=== PATIENT | female | born 1960 | race Caucasian/White ===

== ENCOUNTER 2016-09-04 18:55 | Observation (INO) | payer BC ==
--- NOTE | 2016-09-04 19:07 | PDOC ---
History of Present Illness - General History Source: Patient Exam Limitations: No Limitations - History of Present Illness Initial Comments: 09/04/16 20:27 A portion of this note was documented by scribe services under my direction. I have reviewed the details of the note, within reason, and agree with the documentation. The case summary and management plan written by me. Assessment and plan: This is a 55-year-old female who comes in with her for altered mental state status. Patient is confused and having difficulty with her memory. This is all new onset of symptoms since about 5:30 this evening. Patient had a complete workup including a CAT scan which was negative for any acute pathology. I discussed patient's exam and workup with the neurologist Dr. Vasquez who recommends that patient be admitted for observation overnight get an MRI in the morning and he will follow up with patient in the a.m. Discussed with patient's primary care doctor Dr. Gem Grijalva who will admit patient to an observation bed. <Madelyn Phoenix I - Last Filed: 09/04/16 20:34> - General History Source: Patient Exam Limitations: No Limitations - History of Present Illness Initial Comments: 09/04/16 19:49 The patient is a 55 year old female with a significant past medical history of asthma, who presents to the ED accompanied with , SANDRA. Patient states she feels disoriented and is asking how did she get here. She states she does not know what year or day this is. Patient denies chest pain, SOB, abdominal pain, fever, chills, nausea, vomiting , diarrhea. Patient denies dysuria, frequency, hematuria. PAST MEDICAL HISTORY: Asthma PAST SURGICAL HISTORY: no significant history FAMILY HISTORY: no pertinent history SOCIAL HISTORY: Pt lives with family and is employed. MEDICATIONS: reviewed ALLERGIES: As per nursing notes ROS is limited because patient is AMS. Patient keeps repeating how did I get here?. Patient appears to have difficulty with [id number]. 20 minutes after patient received CT scan, patient keeps asking when is she going to get her CT scan. Exam: General: Well-nourished well-developed individual, no acute distress HEENT: Throat: Normal, tonsils normal, no erythema or exudate Neck: Supple, no meningeal signs, no lymphadenopathy Eyes::Pupils equal reactive and round, extraocular motion intact Chest: Nontender to palpation Cardiac: S1-S2 normal, regular rate and rhythm, no murmurs rubs or gallops Respiratory: Lungs clear to auscultation bilateral Abdomen: Soft, nondistended, normal bowel sounds, nontender to palpation diffusely Extremities: Warm, dry, no cyanosis, clubbing, or edema Skin: No rashes Neuro: Alert and oriented x2, nonfocal exam, grossly intact, normal gait Psych: Normal mood and affect <Vishal Gregorio - Last Filed: 09/04/16 20:59> - General Chief Complaint: CVA/TIA Stated Complaint: i feel disoriented Time Seen by Provider: 09/04/16 19:06 Past History <Madelyn Phoenix I - Last Filed: 09/04/16 20:34> <Vishal Gregorio - Last Filed: 09/04/16 20:59> - Past Medical History Allergies/Adverse Reactions: Allergies Allergy/AdvReac Type Severity Reaction Status Date / Time Penicillins Allergy Verified 09/04/16 18:57 Home Medications: Ambulatory Orders Budesonide/Formeterol Fumarate [SYMBICORT 80/4.5mcg -] 1 inh PO DAILY 09/04/16 Ranitidine HCl [Zantac] 150 mg PO DAILY 09/04/16 Review of Systems - Review of Systems Able to Perform ROS?: No <Vishal Gregorio - Last Filed: 09/04/16 20:59> *Physical Exam - Vital Signs Last Vital Signs Temp Pulse Resp BP Pulse Ox 98.9 F 125 H 18 155/96 99 09/04/16 18:56 09/04/16 18:56 09/04/16 18:56 09/04/16 18:56 09/04/16 18:56 <Vishal Gregorio - Last Filed: 09/04/16 20:59> NIH Stroke Scale - Last Known Well Date/Time & Onset Date Last Known Well: 09/04/16 Time Last Known Well: 17:00 - Initial Evaluation Level of consciousness: Alert Ask patient the month and their age: Answers one correctly Ask patient to open & close eyes; make fist and let go: Obeys both correctly Best gaze (horizontal eye movement): Normal Visual field testing: No visual field loss Facial paresis (Show teeth/raise eyebrows/close eyes tight): Normal symmetrical movement Motor Function: Left Arm: Normal Motor Function: Right Arm: Normal (extends arm 90 (or 45) degrees for 10 seconds without drift Motor Function: Left Leg: Normal (extends leg 30 degrees for 5 seconds without drift) Motor Function: Right Leg: Normal (extends leg 30 degrees for 5 seconds without drift) Limb Ataxia: No ataxia Sensory(Use pinprick test arms,legs,trunk,face/side to side): Normal Best language (Describe picture, name items, read sentences): No Aphasia Dysarthria (read several words): Normal articulation Extinction and Inattention: No abnormality - Total Score NIH Stroke Scale Score: 1 <Madelyn Phoenix I - Last Filed: 09/04/16 20:34> Heart Score/ECG Review - ECG Intrepretation Comment:: 09/04/16 20:58 Sinus Tachycardia, 117 bpm. Otherwise normal ECG. <Vishal Gregorio - Last Filed: 09/04/16 20:59> Critical Care Time/MDM Note - Medical Decision Making Note: 09/04/16 20:[address] Tianna Grijalva. <Vishal Gregorio - Last Filed: 09/04/16 20:59> Discharge Disposition - Discharge Dispostion Admit: Yes <Madelyn Phoenix I - Last Filed: 09/04/16 20:34> <Vishal Gregorio - Last Filed: 09/04/16 20:59> - Diagnosis Altered mental status Qualifiers: Altered mental status type: unspecified Qualified Code(s): R41.82 - Altered mental status, unspecified
[2016-09-04 19:30] LABS: BASOPHIL 1.9 % (0-2.0); EOSINOPHIL 14.2 % (0-4.5); MCH 30.1 pg (25.7-33.7); MCHC 33.9 g/dl (32.0-36.0); MEAN CELL VOLUME 88.8 fl (80-96); MEAN PLT VOLUME 8.6 fl (7.5-11.1); NEUTROPHILS 43.8 % (42.8-82.8); PLATELET COUNT 279 K/MM3 (134-434); RDW 12.6 % (11.6-15.6); WHITE BLOOD COUNT 9.4 K/mm3 (4.0-10.8)
[2016-09-04 19:40] LABS: ALBUMIN 4.4 g/dl (3.5-5.0); ALK PHOS 105 U/L (32-92); ANION GAP 9 (8-16); BILIRUBIN,TOTAL 0.4 mg/dl (0.2-1.0); CALCIUM 9.4 mg/dl (8.4-10.2); CO2 26 mmol/L (22-28); CREATININE 0.9 mg/dl (0.6-1.3); GLUCOSE,RANDOM 127 mg/dl (74-106); SGOT/AST 23 U/L (10-42); SGPT/ALT 15 U/L (10-40); TOT PROT 7.2 g/dl (6.4-8.3)
[2016-09-04 19:43] LABS: PH,URINE 5.5 (4.5-8); URINE APPEARANCE Clear; URINE BILIRUBIN Negative (NEGATIVE); URINE GLUCOSE (UA) Negative (NEGATIVE); URINE KETONE Negative (NEGATIVE); URINE LEUK ESTERASE Negative (NEGATIVE); URINE NITRITE Negative (NEGATIVE); URINE PROTEIN Negative (NEGATIVE); URINE UROBILINOGEN 0.2 E.U/dl (0.2-1.0)
[2016-09-04 19:58] LABS: URINE COLOR YELLOW
[2016-09-04 20:12] LABS: URINE BLOOD 1+ (NEGATIVE)
[2016-09-04] MEDS ORDERED: ALPRAZolam 0.25 MG TABLET PO PRN (20:19)
[2016-09-04] MEDS ORDERED: ASPIRIN 81 MG CHEWABLE TABLETS PO ONE (20:20)
[2016-09-04] MEDS ORDERED: ASPIRIN 81 MG CHEWABLE TABLETS ONE (20:33)
[2016-09-04] MEDS ORDERED: ALPRAZolam 0.25 MG TABLET ONE (20:36)
[2016-09-04 21:19] LABS: URINE MARIJUANA THC NEGATIVE ng/ml (CUTOFF=50)
[2016-09-04 21:37] VITALS: BMI 22.3
[2016-09-04 21:51] LABS: CPK(DFH) 110 IU/L (26-140)
[2016-09-04] MEDS ORDERED: HALOPERIDOL LACTATE 5 MG/ML ONE (22:11)
[2016-09-04 22:18] LABS: TROPONIN I (DFP) < 0.03 ng/ml (0.03-0.50)
--- NOTE | 2016-09-04 22:23 | HP ---
Admitting History and Physical - Admission Chief Complaint: memory loss History of Present Illness: BIB with acute onset of memory loss after getting a speeding ticket this afternoon. Denies any other c/o's. Very anxious. Repeats same questions over and over. - Past Medical History ...LMP Comment: CANNOT OBTAIN INFO THIS TIME ...: No - Smoking History Smoking history: Never smoked - Alcohol/Substance Use Hx Alcohol Use: Yes (SIOCIALLY) Home Medications - Allergies Allergies/Adverse Reactions: Allergies Allergy/AdvReac Type Severity Reaction Status Date / Time Penicillins Allergy Verified 09/04/16 18:57 - Home Medications Home Medications: Ambulatory Orders Budesonide/Formeterol Fumarate [SYMBICORT 80/4.5mcg -] 1 inh PO DAILY 09/04/16 Ranitidine HCl [Zantac] 150 mg PO DAILY 09/04/16 Physical Examination Vital Signs: Vital Signs Temperature 98.9 F 09/04/16 18:56 Pulse Rate 112 H 09/04/16 20:55 Respiratory Rate 16 09/04/16 20:55 Blood Pressure 152/68 09/04/16 20:55 O2 Sat by Pulse Oximetry (%) 100 09/04/16 20:55 Constitutional: Yes: Well Nourished Neck: Yes: WNL Cardiovascular: Yes: Regular Rate and Rhythm Respiratory: Yes: CTA Bilaterally Gastrointestinal: Yes: Normal Bowel Sounds, Soft Extremities: Yes: WNL Edema: No Imaging - Results Cat Scan: Report Reviewed Assessment/Plan Acute memory loss/amnestic state R/O CVA vs. panic disorder head CT neg Plan MRI/MRA stat tonight haldol PRN Ativan PRN Neuro consult in AM
[2016-09-04] MEDS ORDERED: LORAZEPAM CARPU-JECT 2 MG/ML DISP.SYRIN IVPUSH PRN (22:31)
[2016-09-04] MEDS ORDERED: HALOPERIDOL LACTATE 5 MG/ML IM ONE (22:45)
[2016-09-05] MEDS: RANITIDINE HCL 150 MG TABLET (FP) PO SCH ×2 (09:24→09:26)
[2016-09-05] MEDS ORDERED: PT OWN MED DRAWER 7, Y5N ONE ×2 (09:32→17:51)
[2016-09-05] MEDS ORDERED: BUDESONIDE/FORMETEROL FUMARATE 80/4.5 mcg INHALER IH SCH (10:00)
[2016-09-05] MEDS ORDERED: BUDESONIDE/FORMETEROL FUMARATE 160/4.5 mcg INHALER IH SCH (10:00)
[2016-09-05] MEDS ORDERED: PANTOPRAZOLE 40 MG TABLET (FP) PO SCH (10:00)
--- NOTE | 2016-09-05 10:01 | EKG ---
Test Reason : Blood Pressure : / mmHG Vent. Rate : 117 BPM Atrial Rate : 117 BPM P-R Int : 126 ms QRS Dur : 066 ms QT Int : 326 ms P-R-T Axes : 076 036 046 degrees QTc Int : 454 ms SINUS TACHYCARDIA OTHERWISE NORMAL ECG NO PREVIOUS ECGS AVAILABLE Confirmed by HILL GUERRERO MD ([id number]) on 09/05/2016 10:00:52 AM Referred By: MD MLILER Confirmed By:HILL GUERRERO MD
[2016-09-05 14:19] VITALS: BP 118/68; PULSE 84; TEMP 98.4
--- NOTE | 2016-09-05 16:32 | CON.NEURO ---
Consult - History of Present Illness History of Present Illness: episode of amnesia for 24 hour 55 year old female otherwise healthy, except mild asthma and reflux. 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 She is quite stressed due to other mother , who had dementia and live in [place]. She was driving was going to exercise and than she was caught by type copyist for driving fast and than found to have confused and brought to er for possible tia stroke. Patient denies any headhace, dysphagia, dysarthria , diplopia. No motor weakness. no abnormal sensation - Past Medical History ...LMP Comment: CANNOT OBTAIN INFO THIS TIME ...: No - Alcohol/Substance Use Hx Alcohol Use: Yes (SIOCIALLY) - Smoking History Smoking history: Never smoked Home Medications - Allergies Allergies/Adverse Reactions: Allergies Allergy/AdvReac Type Severity Reaction Status Date / Time Penicillins Allergy Verified 09/04/16 18:57 - Home Medications Home Medications: Ambulatory Orders Budesonide/Formeterol Fumarate [SYMBICORT 80/4.5mcg -] 1 inh PO DAILY 09/04/16 Prevacid 40 mg PO DAILY 09/04/16 Ranitidine HCl [Zantac] 150 mg PO DAILY 09/04/16 Physical Exam-Neuro Vital Signs: Vital Signs Temperature 98.4 F 09/05/16 14:17 Pulse Rate 84 09/05/16 14:17 Respiratory Rate 16 09/05/16 14:17 Blood Pressure 118/68 09/05/16 14:17 O2 Sat by Pulse Oximetry (%) 100 09/05/16 14:17 NIH Stroke Scale - Total Score NIH Stroke Scale Score: 0 Imaging - Results Cat Scan: Report Reviewed MRI: Report Reviewed Assessment/Plan episode of amnesia for 24 hour 55 year old female otherwise healthy, except mild asthma and reflux. 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 She is quite stressed due to other mother , who had dementia and live in [place]. She was driving was going to exercise and than she was caught by type copyist for driving fast and than found to have confused and brought to er for possible tia stroke. Patient denies any headhace, dysphagia, dysarthria , diplopia. No motor weakness. no abnormal sensation ct scan was done and normal, mri of brain showed mild white matter changes. Past medical as above ROS reviewed in chart Neurological Exam Alert oriented x 3 cn all intact motor all 5/5 sensation is normal gait and coordination is normal ct and mri of brain reviewed Assessment/Plan Most likely she had trans global amnesia , unlikely to be tia or stroke Plan mri of brain unremarkable. Now she is back to baseline, and no further testing need to be done. Patient was advise to follow up with me as outpatient. This episode not indicative of any possible stroke or tia , she was advise to take baby aspirin for nonspecific white matter changes Thanking you so much Roman Vasquez MD Neurologist
--- NOTE | 2016-09-05 17:32 | CON.PSY ---
Psychiatry Consult Chief Complaint: I had this amnestic episode out of the blue. I have been under lot of pressure lately. Symptoms: reports: Anxiety - Previous Psychiatric Treatment Outpatient: More than 6 mos ago Inpatient: None - Previous Substance Abuse Treatment Outpatient: None Inpatient: None - Reason for Previous Treatment Reason for Previous Treatment: Major Depression - Current Medications Current Medications: Active Medications Alprazolam (Xanax -) 1 mg PO Q8H PRN PRN Reason: ANXIETY Last Admin: 09/04/16 20:38 Dose: 1 mg Budesonide/Formoterol Fumarate (Symbicort 80/4.5mcg -) 1 puff IH DAILY [facility] Last Admin: 09/05/16 09:30 Dose: 1 puff Lorazepam (Ativan Injection -) 1 mg IVPUSH Q4H PRN Last Admin: 09/05/16 00:13 Dose: 1 mg Pantoprazole Sodium (Protonix -) 40 mg PO DAILY [facility] Last Admin: 09/05/16 09:24 Dose: 40 mg Ranitidine HCl (Zantac -) 150 mg PO DAILY [facility] Last Admin: 09/05/16 09:26 Dose: Not Given - Allergies Allergies: Allergies Allergy/AdvReac Type Severity Reaction Status Date / Time Penicillins Allergy Verified 09/04/16 18:57 - Current Living Status Usual Living Arrangement: With Spouse - Current Mental Status Evaluation Appearance: Well Groomed Attitude: Cooperative - Affect Affect: Full Range Appropriateness: Appropriate to Content - Mood Mood: Anxious - Speech/Language Expressive: Coherent - Psychomotor Activity Psychomotor Activity: Hyperactive - Thought Process Thought Process: Intact - Thought Content Hallucinations: Absent Delusions: Absent - Self Perception Self Perception: No Impairment - Cognition Attention: Alert Orientation: Time Memory, Immediate Recall: Intact Memory, Short Term: 3/3 Memory, Remote with Promptin/3 - Concentration Serial Sevens Intact: Yes Simple Calculations Intact: Yes - Abstraction Proverb Interpretation: Intact Judgement: Intact - Insight Insight: Intact - Impulse Control Impulse Control: Good Control - Suicidal Ideation Suicidal Ideation: No - Homicidal Ideation Homicidal Ideation: No Assessment/Plan Patient does not want to take any meds like Celexa which she took in the past for abrief period of time. Discharge when medically stable.
== END 2016-09-05 17:55 | disposition home or self-care (01) ==
LOC: FER 18:55 → FM/S 20:55
PROVIDERS: ADMIT Internal Medicine Pulmonary Disease; ATTEND Internal Medicine Pulmonary Disease
PROC: 3E033NZ Introduction of Analgesics, Hypnotics, Sedatives into Peripheral Vein, Percutaneous Approach (ICD-10-PCS; principal; 2016-09-04)
PROC: 3E023GC Introduction of Other Therapeutic Substance into Muscle, Percutaneous Approach (ICD-10-PCS; 2016-09-04)
PROC: 3E0F7GC Introduction of Other Therapeutic Substance into Respiratory Tract, Via Natural or Artificial Opening (ICD-10-PCS; 2016-09-04)
DX: R41.82 Altered mental status, unspecified (principal); R41.3 Other amnesia; J45.909 Unspecified asthma, uncomplicated; R00.0 Tachycardia, unspecified; Z88.0 Allergy status to penicillin
CPT/HCPCS: 36415; 70450-TC; 70553-TC; 80053; 80307; 81003; 82550; 84484; 85025; 93005; 99285-25; C1887; G0378